=== PATIENT | female | born 1990 | race African-American/Black ===

== ENCOUNTER 2020-07-01 20:01 | Emergency (ER) | payer MEDICARE, MEDICAID ==
[2020-07-01 20:59] LABS: #Eosinphils 0.3 10x3/uL (0.0-0.5); #Monocytes 0.4 10x3/uL (0.0-1.1); #Neutrophils 2.7 10x3/uL (1.5-8.4); %Basophils 0.5 % (0.0-2.0); %Eosinophils 3.9 % (0.0-6.0); %Lymphocytes 46.7 % (18.0-47.0); %Monocytes 6.5 % (0.0-10.0); %Neutrophils 41.9 % (40.0-75.0); Hemoglobin 10.4 g/dL (12.0-15.5); Mean Corpuscular HGB CONC 30.9 g/dL (32.0-36.0); Mean Corpuscular Volume 71.2 fl (81.6-98.3); Mean Platelet Volume 9.6 fl (7.4-10.4); Platelet Count 312 10x3/uL (150-450); RBC Distribution Width 26.3 % (11.5-14.5); Red Blood Cell (RBC) Count 4.73 10x6/uL (3.90-5.03); White Blood Cell (WBC) Count 6.4 10x3/uL (3.5-10.5)
[2020-07-01 21:18] LABS: ALT (SGPT) 26 U/L (8-55); AST (SGOT) 22 U/L (5-34); Alkaline Phosphatase 78 U/L (40-110); Anion Gap 14 mmol/L (10-20); BUN (Urea Nitrogen) 9 mg/dL (7.0-18.7); Bilirubin, Total 2.2 mg/dL (0.2-1.2); Calc. Creatinine Clearance 0 mL/min (70-130); Calcium 9.4 mg/dL (7.8-10.44); Carbon Dioxide 20 mmol/L (22-29); Chloride 108 mmol/L (98-107); Globulin 3.7 g/dL (2.4-3.5); Glucose 97 mg/dL (70-105); Potassium 4.3 mmol/L (3.5-5.1); Protein, Total 8.7 g/dL (6.0-8.3); Sodium 138 mmol/L (136-145)
[2020-07-01] MEDS ORDERED: Morphine 4 MG/ML VIAL ONE ×2 (21:30→23:09)
[2020-07-01] MEDS ORDERED: diphenhydrAMINE 50 MG/ML VIAL ONE ×2 (21:30→23:09)
[2020-07-01 22:11] LABS: Band 1 % (5-11); Eosinophils 2 % (0-10); Lymphocytes 54 % (21-51); Metamyelocyte 1 % (0-0); Monocytes 6 % (0-10); Nucleated RBC 62 % (0)
[2020-07-01 22:13] LABS: Anisocytosis MARKED = >30 cells (100X) (0-5/hpf); Elliptocytes SLIGHT = 2-5 cells (100X) (0-1/hpf); Hypochromia MODERATE=16-30 cells (100X) (0-5/hpf); Microcytosis MODERATE=15-30 cells (100X) (0-5/hpf); Platelet Morphology Comment Appears Adequate; Poikilocytosis MARKED = >30 cells (100X) (0-5/hpf)
[2020-07-01 22:43] LABS: Pregnancy Test - Urine (BHCG) Negative (Negative); Pregu Control Background? CLEAR/WHITE (CLR/WHITE); Pregu Control Bar Appear? YES (CONTROL BAR)
[2020-07-02] MEDS ORDERED: Morphine 4 MG/ML VIAL ONE (00:06)
== END 2020-07-02 00:36 | disposition home or self-care (01) ==
LOC: CSHERS 20:01
DX: D57.00 Hb-SS disease with crisis, unspecified (principal); Z79.899 Other long term (current) drug therapy
CPT/HCPCS: 71045; 80053; 81025; 84484; 85025; 85046; 93005; 96374; 96375; 96376; J1200; J2270

== ENCOUNTER 2020-07-08 18:47 | Emergency (ER) | payer MEDICARE, MEDICAID ==
[2020-07-08] MEDS ORDERED: Morphine 4 MG/ML VIAL ONE (19:57)
[2020-07-08] MEDS ORDERED: diphenhydrAMINE 50 MG/ML VIAL ONE ×2 (19:58→21:17)
[2020-07-08 20:27] LABS: ALT (SGPT) 51 U/L (8-55); AST (SGOT) 34 U/L (5-34); Albumin 4.8 g/dL (3.5-5.0); Alkaline Phosphatase 83 U/L (40-110); Anion Gap 14 mmol/L (10-20); BUN (Urea Nitrogen) 10 mg/dL (7.0-18.7); Bilirubin, Total 2.4 mg/dL (0.2-1.2); CK (CPK) 60 U/L (29-168); Calc. Creatinine Clearance 0 mL/min (70-130); Calcium 9.3 mg/dL (7.8-10.44); Carbon Dioxide 21 mmol/L (22-29); Chloride 106 mmol/L (98-107); Globulin 3.5 g/dL (2.4-3.5); Glucose 89 mg/dL (70-105); Potassium 3.9 mmol/L (3.5-5.1); Protein, Total 8.3 g/dL (6.0-8.3); Sodium 137 mmol/L (136-145)
[2020-07-08 20:54] LABS: Hemoglobin 9.7 g/dL (12.0-15.5); Mean Corpuscular HGB CONC 31.6 g/dL (32.0-36.0); Mean Corpuscular Hemoglobin 22.2 pg (27.0-33.0); Mean Corpuscular Volume 70.3 fl (81.6-98.3); Mean Platelet Volume 9.3 fl (7.4-10.4); Platelet Count 439 10x3/uL (150-450); RBC Distribution Width 25.2 % (11.5-14.5); Red Blood Cell (RBC) Count 4.37 10x6/uL (3.90-5.03); White Blood Cell (WBC) Count 7.9 10x3/uL (3.5-10.5)
[2020-07-08 20:56] LABS: Band 4 % (5-11); Eosinophils 5 % (0-10); Lymphocytes 35 % (21-51); Monocytes 7 % (0-10); Neutrophil 46 % (42-75); Nucleated RBC 77 % (0); Reactive Lymphocytes 3 % (0-10)
[2020-07-08 20:57] LABS: Anisocytosis MODERATE=16-30 cells (100X) (0-5/hpf); Basophilic Stippling SLIGHT = 1-2 cells (100X) (None Seen); Macrocytosis SLIGHT = 6-15 cells (100X) (0-5/hpf); Microcytosis MODERATE=15-30 cells (100X) (0-5/hpf); Polychromasia MODERATE = 3-4 cells (100X) (0-2/hpf); Target Cells MODERATE= 6-15 cells (100X) (0-1/hpf)
[2020-07-08 20:58] LABS: Poikilocytosis SLIGHT = 6-15 cells (100X) (0-5/hpf); Sickle Cells SLIGHT = 1-5 cells (100X) (None Seen)
[2020-07-08 20:59] LABS: Spherocytes SLIGHT = 1-5 cells (100X) (None Seen)
[2020-07-08 21:01] LABS: Large Platelets SLIGHT; Platelet Morphology Comment Appears Increased
[2020-07-08 21:02] LABS: MDiff Complete? YES; Manual Diff?? YES
[2020-07-08] MEDS ORDERED: Morphine 2 MG/ML VIAL ONE (21:17)
[2020-07-09] MEDS ORDERED: Ibuprofen 200 MG TAB ONE (05:10)
[2020-07-09] MEDS ORDERED: Acetaminophen 500 MG TAB ONE (05:10)
== END 2020-07-08 22:25 | disposition home or self-care (01) ==
LOC: CSHERS 18:47
DX: D57.00 Hb-SS disease with crisis, unspecified (principal)
CPT/HCPCS: 71045; 80053; 82550; 84484; 85025; 85046; 93005; 96374; 96375; 96376; 99285; J2270; 36415; J1200

== ENCOUNTER 2020-07-17 13:11 | Emergency (ER) | payer MEDICARE, MEDICAID ==
[2020-07-17] MEDS ORDERED: Morphine 4 MG/ML VIAL ONE ×2 (15:29→17:29)
[2020-07-17] MEDS ORDERED: diphenhydrAMINE 50 MG/ML VIAL ONE ×3 (15:35→19:43)
[2020-07-17 15:44] LABS: Hemoglobin 8.9 g/dL (12.0-15.5); Mean Corpuscular HGB CONC 30.7 g/dL (32.0-36.0); Mean Corpuscular Hemoglobin 21.3 pg (27.0-33.0); Mean Corpuscular Volume 69.4 fl (81.6-98.3); Mean Platelet Volume 9.6 fl (7.4-10.4); Platelet Count 385 10x3/uL (150-450); RBC Distribution Width 25.1 % (11.5-14.5); Red Blood Cell (RBC) Count 4.18 10x6/uL (3.90-5.03); White Blood Cell (WBC) Count 8.2 10x3/uL (3.5-10.5)
[2020-07-17 15:55] LABS: BHCG - Serum Negative (NEGATIVE); Pregs Control Background? CLEAR/WHITE (CLR/WHITE); Pregs Control Bar Appear? YES (CONTROL BAR)
[2020-07-17 16:06] LABS: Bilirubin Neg (Negative); Blood, Urine Negative (Negative); Clarity Clear (Clear); Glucose, Urine (Dipstick) Normal (Negative); Ketone, Urine Negative (Negative); Leukocyte Negative (Negative); Nitrite Negative (Negative); Protein, Urine (Dipstick) Negative (Neg-Trace); Urobilinogen Normal mg/dL (Less than 2)
[2020-07-17 16:20] LABS: ALT (SGPT) 44 U/L (8-55); AST (SGOT) 35 U/L (5-34); Albumin 4.4 g/dL (3.5-5.0); Alkaline Phosphatase 85 U/L (40-110); Anion Gap 11 mmol/L (10-20); BUN (Urea Nitrogen) 10 mg/dL (7.0-18.7); Bilirubin, Total 1.9 mg/dL (0.2-1.2); Calc. Creatinine Clearance 0 mL/min (70-130); Calcium 9.3 mg/dL (7.8-10.44); Carbon Dioxide 25 mmol/L (22-29); Chloride 106 mmol/L (98-107); Globulin 3.5 g/dL (2.4-3.5); Glucose 86 mg/dL (70-105); Potassium 4.4 mmol/L (3.5-5.1); Protein, Total 7.9 g/dL (6.0-8.3); Sodium 138 mmol/L (136-145)
[2020-07-17] MEDS ORDERED: HYDROmorphone 0.5 MG/0.5 ML SYRINGE ONE (19:33)
[2020-07-17 19:34] LABS: Band 3 % (5-11); Eosinophils 3 % (0-10); Lymphocytes 33 % (21-51); MDiff Complete? YES; Monocytes 6 % (0-10); Neutrophil 55 % (42-75)
[2020-07-17 19:35] LABS: Nucleated RBC 53 % (0)
[2020-07-17 19:38] LABS: Anisocytosis MARKED = >30 cells (100X) (0-5/hpf); Poikilocytosis MODERATE=16-30 cells (100X) (0-5/hpf); Sickle Cells SLIGHT = 1-5 cells (100X) (None Seen); Target Cells SLIGHT = 2-5 cells (100X) (0-1/hpf)
[2020-07-17 19:39] LABS: Microcytosis MARKED = >30 cells (100X) (0-5/hpf); Platelet Morphology Comment Appears Adequate
== END 2020-07-17 20:29 | disposition home or self-care (01) ==
LOC: CSHERS 13:11
DX: D57.00 Hb-SS disease with crisis, unspecified (principal); Z79.01 Long term (current) use of anticoagulants
CPT/HCPCS: 80053; 81003; 84703; 85025; 85046; 93005; 96374; 96375; 96376; J1170; J1200; J2270

== ENCOUNTER 2020-07-20 01:28 | Emergency (ER) | payer MEDICARE, MEDICAID ==
[2020-07-20] MEDS ORDERED: diphenhydrAMINE 50 MG/ML VIAL ONE ×2 (02:31→04:57)
[2020-07-20] MEDS ORDERED: Morphine 4 MG/ML VIAL ONE (02:31)
[2020-07-20] MEDS ORDERED: Ketorolac Tromethamine 30 MG/ML VIAL ONE (02:32)
[2020-07-20 02:43] LABS: Hemoglobin 9.1 g/dL (12.0-15.5); Mean Corpuscular HGB CONC 31.4 g/dL (32.0-36.0); Mean Corpuscular Hemoglobin 21.4 pg (27.0-33.0); Mean Corpuscular Volume 68.2 fl (81.6-98.3); Mean Platelet Volume 8.8 fl (7.4-10.4); Platelet Count 350 10x3/uL (150-450); RBC Distribution Width 26.1 % (11.5-14.5); Red Blood Cell (RBC) Count 4.25 10x6/uL (3.90-5.03); White Blood Cell (WBC) Count 15.8 10x3/uL (3.5-10.5)
[2020-07-20 02:47] LABS: ALT (SGPT) 45 U/L (8-55); AST (SGOT) 32 U/L (5-34); Albumin 4.7 g/dL (3.5-5.0); Alkaline Phosphatase 84 U/L (40-110); Anion Gap 12 mmol/L (10-20); BUN (Urea Nitrogen) 6 mg/dL (7.0-18.7); Bilirubin, Total 2.3 mg/dL (0.2-1.2); Calc. Creatinine Clearance 0 mL/min (70-130); Calcium 9.3 mg/dL (7.8-10.44); Carbon Dioxide 22 mmol/L (22-29); Chloride 108 mmol/L (98-107); Globulin 3.5 g/dL (2.4-3.5); Glucose 102 mg/dL (70-105); Potassium 3.9 mmol/L (3.5-5.1); Protein, Total 8.2 g/dL (6.0-8.3); Sodium 138 mmol/L (136-145)
[2020-07-20] MEDS ORDERED: HYDROmorphone 0.5 MG/0.5 ML SYRINGE ONE ×2 (03:39→04:57)
[2020-07-20 03:50] LABS: Band 5 % (5-11); Lymphocytes 11 % (21-51); Monocytes 5 % (0-10); Neutrophil 79 % (42-75); Nucleated RBC 41 % (0)
[2020-07-20 03:52] LABS: Anisocytosis MODERATE=16-30 cells (100X) (0-5/hpf); Basophilic Stippling SLIGHT = 1-2 cells (100X) (None Seen); Microcytosis MODERATE=15-30 cells (100X) (0-5/hpf); Poikilocytosis SLIGHT = 6-15 cells (100X) (0-5/hpf); Polychromasia MODERATE = 3-4 cells (100X) (0-2/hpf); Sickle Cells SLIGHT = 1-5 cells (100X) (None Seen); Target Cells MODERATE= 6-15 cells (100X) (0-1/hpf)
[2020-07-20 03:53] LABS: Macrocytosis SLIGHT = 6-15 cells (100X) (0-5/hpf)
[2020-07-20 03:54] LABS: Tear Drops SLIGHT = 2-5 cells (100X) (0-1/hpf)
[2020-07-20 03:56] LABS: Howell Jolly Bodies MODERATE = 3-5 cells (100X) (None Seen)
[2020-07-20 03:59] LABS: Large Platelets SLIGHT; MDiff Complete? YES; Manual Diff?? YES; Platelet Morphology Comment Appears Adequate
== END 2020-07-20 05:19 | disposition home or self-care (01) ==
LOC: CSHERS 01:28
DX: D57.00 Hb-SS disease with crisis, unspecified (principal); M25.561 Pain in right knee; Z79.01 Long term (current) use of anticoagulants; Z79.899 Other long term (current) drug therapy
CPT/HCPCS: 80053; 85025; 85046; 93005; 96374; 96375; 96376; J1170; J1200; J1885; J2270

== ENCOUNTER 2020-07-24 16:49 | Emergency (ER) | payer MEDICARE, MEDICAID ==
[2020-07-24 17:52] LABS: Hemoglobin 9.5 g/dL (12.0-15.5); Mean Corpuscular HGB CONC 31.6 g/dL (32.0-36.0); Mean Corpuscular Hemoglobin 21.6 pg (27.0-33.0); Mean Corpuscular Volume 68.4 fl (81.6-98.3); Mean Platelet Volume 9.7 fl (7.4-10.4); Platelet Count 376 10x3/uL (150-450); RBC Distribution Width 25.1 % (11.5-14.5); White Blood Cell (WBC) Count 7.3 10x3/uL (3.5-10.5)
[2020-07-24 17:58] LABS: ALT (SGPT) 25 U/L (8-55); AST (SGOT) 21 U/L (5-34); Albumin 4.8 g/dL (3.5-5.0); Alkaline Phosphatase 83 U/L (40-110); Anion Gap 14 mmol/L (10-20); BUN (Urea Nitrogen) 6 mg/dL (7.0-18.7); Bilirubin, Total 2.6 mg/dL (0.2-1.2); Calc. Creatinine Clearance 0 mL/min (70-130); Calcium 9.5 mg/dL (7.8-10.44); Carbon Dioxide 21 mmol/L (22-29); Chloride 107 mmol/L (98-107); Globulin 3.6 g/dL (2.4-3.5); Glucose 87 mg/dL (70-105); Potassium 4.1 mmol/L (3.5-5.1); Protein, Total 8.4 g/dL (6.0-8.3); Sodium 138 mmol/L (136-145)
[2020-07-24 18:40] LABS: #Monocytes 0.5 10x3/uL (0.0-1.1); #Neutrophils 4.1 10x3/uL (1.5-8.4); %Basophils 0.3 % (0.0-2.0); %Eosinophils 5.6 % (0.0-6.0); %Lymphocytes 30.8 % (18.0-47.0); %Neutrophils 55.6 % (40.0-75.0)
[2020-07-24 18:44] LABS: #Eosinphils 0.4 10x3/uL (0.0-0.5)
[2020-07-24 18:46] LABS: Anisocytosis MODERATE=16-30 cells (100X) (0-5/hpf); Macrocytosis MODERATE=16-30 cells (100X) (0-5/hpf); Poikilocytosis SLIGHT = 6-15 cells (100X) (0-5/hpf); Polychromasia MODERATE = 3-4 cells (100X) (0-2/hpf)
[2020-07-24 18:47] LABS: Hypochromia MODERATE=16-30 cells (100X) (0-5/hpf); Stomatocytes MODERATE= 6-15 cells (100X) (0-1/hpf); Target Cells MODERATE= 6-15 cells (100X) (0-1/hpf)
[2020-07-24 18:48] LABS: Sickle Cells SLIGHT = 1-5 cells (100X) (None Seen)
[2020-07-24 18:49] LABS: Bite Cells SLIGHT = 2-5 cells (100X) (0-1/hpf)
[2020-07-24 18:50] LABS: Platelet Morphology Comment Appears Adequate; Reflex for Review?? YES
== END 2020-07-24 17:48 | disposition left against medical advice (07) ==
LOC: CSHERS 16:49
DX: Z53.21 Procedure and treatment not carried out due to patient leaving prior to being seen by health care provider (principal)
CPT/HCPCS: 71045; 80053; 84484; 85025; 85046; 85060; 93005

== ENCOUNTER 2020-08-06 18:27 | Emergency (ER) | payer MEDICARE, MEDICAID ==
[2020-08-06] MEDS ORDERED: Ketorolac Tromethamine 30 MG/ML VIAL ONE (19:35)
[2020-08-06] MEDS ORDERED: Metoclopramide HCl 10 MG/2 ML VIAL ONE (19:35)
[2020-08-06] MEDS ORDERED: diphenhydrAMINE 50 MG/ML VIAL ONE (19:35)
[2020-08-06 21:11] LABS: Hemoglobin 9.2 g/dL (12.0-15.5); Mean Corpuscular HGB CONC 31.3 g/dL (32.0-36.0); Mean Corpuscular Hemoglobin 21.2 pg (27.0-33.0); Mean Corpuscular Volume 67.9 fl (81.6-98.3); Mean Platelet Volume 9.5 fl (7.4-10.4); Platelet Count 353 10x3/uL (150-450); RBC Distribution Width 23.4 % (11.5-14.5); Red Blood Cell (RBC) Count 4.33 10x6/uL (3.90-5.03)
[2020-08-06 21:20] LABS: ALT (SGPT) 25 U/L (8-55); AST (SGOT) 29 U/L (5-34); Albumin 4.7 g/dL (3.5-5.0); Alkaline Phosphatase 76 U/L (40-110); Anion Gap 13 mmol/L (10-20); BUN (Urea Nitrogen) 7 mg/dL (7.0-18.7); Calc. Creatinine Clearance 0 mL/min (70-130); Calcium 9.4 mg/dL (7.8-10.44); Carbon Dioxide 22 mmol/L (22-29); Chloride 107 mmol/L (98-107); Globulin 3.7 g/dL (2.4-3.5); Glucose 111 mg/dL (70-105); Potassium 3.9 mmol/L (3.5-5.1); Protein, Total 8.4 g/dL (6.0-8.3); Sodium 138 mmol/L (136-145)
[2020-08-06 21:31] LABS: #Eosinphils 0.6 10x3/uL (0.0-0.5); #Monocytes 0.4 10x3/uL (0.0-1.1); #Neutrophils 3.9 10x3/uL (1.5-8.4); %Basophils 0.3 % (0.0-2.0); %Eosinophils 7.1 % (0.0-6.0); %Lymphocytes 41.9 % (18.0-47.0); %Neutrophils 45.4 % (40.0-75.0)
[2020-08-06 22:42] LABS: Eosinophils 6 % (0-10); Lymphocytes 35 % (21-51); Monocytes 3 % (0-10); Myelocyte 1 % (0-0); Neutrophil 45 % (42-75); Nucleated RBC 75 % (0); Reactive Lymphocytes 6 % (0-10)
[2020-08-06 22:43] LABS: Band 3 % (5-11)
[2020-08-06 22:45] LABS: Target Cells MODERATE= 6-15 cells (100X) (0-1/hpf)
[2020-08-06 22:46] LABS: Anisocytosis MODERATE=16-30 cells (100X) (0-5/hpf); Microcytosis MODERATE=15-30 cells (100X) (0-5/hpf); Poikilocytosis SLIGHT = 6-15 cells (100X) (0-5/hpf); Polychromasia SLIGHT = 2-3 cells (100X) (0-2/hpf); Sickle Cells MODERATE= 6-15 cells (100X) (None Seen)
[2020-08-06 22:47] LABS: Spherocytes SLIGHT = 1-5 cells (100X) (None Seen)
[2020-08-06 22:48] LABS: Basophilic Stippling SLIGHT = 1-2 cells (100X) (None Seen); Howell Jolly Bodies MODERATE = 3-5 cells (100X) (None Seen)
[2020-08-06 22:49] LABS: Large Platelets SLIGHT; Platelet Morphology Comment Appears Adequate
[2020-08-06 22:52] LABS: MDiff Complete? YES; Manual Diff?? YES; White Blood Cell (WBC) Count 6.6 10x3/uL (3.5-10.5)
== END 2020-08-06 21:41 | disposition left against medical advice (07) ==
LOC: CSHERS 18:27
DX: R51.9 Headache, unspecified (principal); D57.1 Sickle-cell disease without crisis
CPT/HCPCS: 80053; 85025; 85046; 96365; 96375; J1200; J1885; J2765

== ENCOUNTER 2020-08-15 15:26 | Emergency (ER) | payer MEDICARE, MEDICAID ==
[2020-08-15] MEDS ORDERED: Ketamine 50 MG/ML (10ML VIAL) ONE (18:27)
[2020-08-15] MEDS ORDERED: Ondansetron PF 4 MG/2 ML Vial ONE (18:28)
[2020-08-15 19:00] LABS: Hemoglobin 8.9 g/dL (12.0-15.5); Mean Corpuscular HGB CONC 31.2 g/dL (32.0-36.0); Mean Corpuscular Hemoglobin 21.3 pg (27.0-33.0); Mean Corpuscular Volume 68.3 fl (81.6-98.3); Mean Platelet Volume 9.4 fl (7.4-10.4); Platelet Count 335 10x3/uL (150-450); RBC Distribution Width 23.7 % (11.5-14.5); Red Blood Cell (RBC) Count 4.17 10x6/uL (3.90-5.03); White Blood Cell (WBC) Count 8.1 10x3/uL (3.5-10.5)
[2020-08-15 19:16] LABS: ALT (SGPT) 18 U/L (8-55); AST (SGOT) 20 U/L (5-34); Albumin 4.6 g/dL (3.5-5.0); Alkaline Phosphatase 73 U/L (40-110); Anion Gap 13 mmol/L (10-20); BUN (Urea Nitrogen) 7 mg/dL (7.0-18.7); Bilirubin, Total 2.7 mg/dL (0.2-1.2); Calc. Creatinine Clearance 0 mL/min (70-130); Calcium 9.3 mg/dL (7.8-10.44); Carbon Dioxide 23 mmol/L (22-29); Chloride 107 mmol/L (98-107); Globulin 3.5 g/dL (2.4-3.5); Glucose 84 mg/dL (70-105); Potassium 3.9 mmol/L (3.5-5.1); Protein, Total 8.1 g/dL (6.0-8.3); Sodium 139 mmol/L (136-145)
[2020-08-15 19:43] LABS: Eosinophils 4 % (0-10); Lymphocytes 34 % (21-51); Monocytes 3 % (0-10); Neutrophil 59 % (42-75); Nucleated RBC 59 % (0)
[2020-08-15 19:44] LABS: MDiff Complete? YES
[2020-08-15] MEDS ORDERED: Morphine 2 MG/ML VIAL ONE (19:44)
[2020-08-15] MEDS ORDERED: diphenhydrAMINE 50 MG/ML VIAL ONE (19:44)
[2020-08-15] MEDS ORDERED: Morphine 4 MG/ML VIAL ONE (19:44)
[2020-08-15 19:45] LABS: Anisocytosis MODERATE=16-30 cells (100X) (0-5/hpf); Basophilic Stippling SLIGHT = 1-2 cells (100X) (None Seen); Howell Jolly Bodies SLIGHT = 1-2 cells (100X) (None Seen); Hypochromia SLIGHT = 6-15 cells (100X) (0-5/hpf); Microcytosis MODERATE=15-30 cells (100X) (0-5/hpf); Pappenheimer Bodies MODERATE = 3-5 cells (100X) (None Seen); Poikilocytosis MODERATE=16-30 cells (100X) (0-5/hpf); Polychromasia SLIGHT = 2-3 cells (100X) (0-2/hpf); Target Cells MODERATE= 6-15 cells (100X) (0-1/hpf)
[2020-08-15 19:46] LABS: Sickle Cells SLIGHT = 1-5 cells (100X) (None Seen); Stomatocytes SLIGHT = 2-5 cells (100X) (0-1/hpf)
[2020-08-15 19:49] LABS: Schistocytes SLIGHT = 2-5 cells (100X) (0-1/hpf)
[2020-08-15 19:51] LABS: Large Platelets SLIGHT; Platelet Morphology Comment Appears Adequate
== END 2020-08-15 20:51 | disposition home or self-care (01) ==
LOC: CSHERS 15:26
DX: D57.00 Hb-SS disease with crisis, unspecified (principal)
CPT/HCPCS: 80053; 85025; 85046; 96374; 96375; 99284; J2270; J1200; J2405

== ENCOUNTER 2020-08-29 11:24 | Emergency (ER) | payer MEDICARE, MEDICAID ==
[2020-08-29 12:41] LABS: MDiff Complete? YES
[2020-08-29 12:44] LABS: ALT (SGPT) 21 U/L (8-55); AST (SGOT) 23 U/L (5-34); Albumin 4.3 g/dL (3.5-5.0); Alkaline Phosphatase 65 U/L (40-110); Anion Gap 13 mmol/L (10-20); BUN (Urea Nitrogen) 5 mg/dL (7.0-18.7); Bilirubin, Total 2.1 mg/dL (0.2-1.2); Calc. Creatinine Clearance 0 mL/min (70-130); Calcium 9.1 mg/dL (7.8-10.44); Carbon Dioxide 19 mmol/L (22-29); Chloride 109 mmol/L (98-107); Globulin 3.6 g/dL (2.4-3.5); Glucose 99 mg/dL (70-105); Potassium 4.1 mmol/L (3.5-5.1); Protein, Total 7.9 g/dL (6.0-8.3); Sodium 137 mmol/L (136-145)
[2020-08-29 12:47] LABS: Band 1 % (5-11); Eosinophils 2 % (0-10); Lymphocytes 30 % (21-51); Monocytes 5 % (0-10); Neutrophil 62 % (42-75); Nucleated RBC 55 % (0)
[2020-08-29 12:51] LABS: Hemoglobin 8.8 g/dL (12.0-15.5); Mean Corpuscular HGB CONC 31.3 g/dL (32.0-36.0); Mean Corpuscular Volume 66.9 fl (81.6-98.3); Mean Platelet Volume 9.6 fl (7.4-10.4); Platelet Count 437 10x3/uL (150-450); RBC Distribution Width 23.1 % (11.5-14.5); White Blood Cell (WBC) Count 8.2 10x3/uL (3.5-10.5)
[2020-08-29 12:53] LABS: Microcytosis MODERATE=15-30 cells (100X) (0-5/hpf); Schistocytes SLIGHT = 2-5 cells (100X) (0-1/hpf); Sickle Cells SLIGHT = 1-5 cells (100X) (None Seen); Target Cells MODERATE= 6-15 cells (100X) (0-1/hpf)
[2020-08-29 12:54] LABS: Stomatocytes SLIGHT = 2-5 cells (100X) (0-1/hpf)
[2020-08-29 12:55] LABS: Anisocytosis MODERATE=16-30 cells (100X) (0-5/hpf); Platelet Morphology Comment Appears Adequate
[2020-08-29] MEDS ORDERED: Morphine 4 MG/ML VIAL ONE (13:00)
[2020-08-29] MEDS ORDERED: Ketorolac Tromethamine 15 MG/ML VIAL ONE (13:01)
[2020-08-29] MEDS ORDERED: diphenhydrAMINE 50 MG/ML VIAL ONE (13:01)
== END 2020-08-29 16:38 | disposition home or self-care (01) ==
LOC: CSHERS 11:24
DX: D57.00 Hb-SS disease with crisis, unspecified (principal)
CPT/HCPCS: 36416; 71045; 80053; 84484; 85025; 85046; 93005; 96374; 96375; J1200; J1885; J2270

== ENCOUNTER 2020-11-23 20:18 | Emergency (ER) | payer MEDICARE, MEDICAID ==
[2020-11-23] MEDS ORDERED: Ondansetron ODT 4 MG TAB ONE (22:08)
[2020-11-23] MEDS ORDERED: Morphine 10 MG/ML VIAL ONE (22:34)
== END 2020-11-23 22:43 | disposition home or self-care (01) ==
LOC: CSHERS 20:18
DX: D57.00 Hb-SS disease with crisis, unspecified (principal); R11.0 Nausea
CPT/HCPCS: 96372; 99283; J2270; Q0162

== ENCOUNTER 2020-11-29 14:34 | Emergency (ER) | payer MEDICARE, MEDICAID ==
[2020-11-29 16:40] LABS: Mean Corpuscular HGB CONC 30.9 g/dL (32.0-36.0); Mean Corpuscular Volume 67.8 fl (81.6-98.3); Mean Platelet Volume 9.5 fl (7.4-10.4); Platelet Count 407 10x3/uL (150-450); RBC Distribution Width 23.8 % (11.5-14.5); Red Blood Cell (RBC) Count 4.29 10x6/uL (3.90-5.03); White Blood Cell (WBC) Count 9.9 10x3/uL (3.5-10.5)
[2020-11-29 16:56] LABS: ALT (SGPT) 16 U/L (8-55); AST (SGOT) 20 U/L (5-34); Albumin 4.5 g/dL (3.5-5.0); Alkaline Phosphatase 61 U/L (40-110); Anion Gap 12 mmol/L (10-20); BUN (Urea Nitrogen) 8 mg/dL (7.0-18.7); Bilirubin, Total 2.4 mg/dL (0.2-1.2); Calc. Creatinine Clearance 0 mL/min (70-130); Calcium 9.8 mg/dL (7.8-10.44); Carbon Dioxide 21 mmol/L (22-29); Chloride 110 mmol/L (98-107); Globulin 3.8 g/dL (2.4-3.5); Glucose 90 mg/dL (70-105); Potassium 4.3 mmol/L (3.5-5.1); Protein, Total 8.3 g/dL (6.0-8.3); Sodium 139 mmol/L (136-145)
[2020-11-29] MEDS ORDERED: diphenhydrAMINE 50 MG/ML VIAL ONE (17:12)
[2020-11-29] MEDS ORDERED: Morphine 10 MG/ML VIAL ONE (17:13)
[2020-11-29] MEDS ORDERED: Morphine 2 MG/ML VIAL ONE (18:25)
[2020-11-29 18:59] LABS: #Basophils 0.1 10x3/uL (0.0-0.2); #Eosinphils 0.5 10x3/uL (0.0-0.5); #Monocytes 0.8 10x3/uL (0.0-1.1); #Neutrophils 5.7 10x3/uL (1.5-8.4); %Basophils 0.8 % (0.0-2.0); %Eosinophils 5.1 % (0.0-6.0); %Lymphocytes 27.3 % (18.0-47.0); %Monocytes 8.2 % (0.0-10.0); %Neutrophils 57.1 % (40.0-75.0); Anisocytosis SLIGHT = 6-15 cells (100X) (0-5/hpf); Macrocytosis SLIGHT = 6-15 cells (100X) (0-5/hpf); Microcytosis SLIGHT = 6-15 cells (100X) (0-5/hpf)
[2020-11-29 19:00] LABS: Basophilic Stippling MODERATE = 3-5 cells (100X) (None Seen); Elliptocytes SLIGHT = 2-5 cells (100X) (0-1/hpf); Hypochromia SLIGHT = 6-15 cells (100X) (0-5/hpf); Platelet Morphology Comment Appears Adequate; Polychromasia SLIGHT = 2-3 cells (100X) (0-2/hpf); Sickle Cells SLIGHT = 1-5 cells (100X) (None Seen); Target Cells MODERATE= 6-15 cells (100X) (0-1/hpf)
== END 2020-11-29 18:28 | disposition home or self-care (01) ==
LOC: CSHERS 14:34
DX: D57.00 Hb-SS disease with crisis, unspecified (principal); Z79.01 Long term (current) use of anticoagulants; Z79.899 Other long term (current) drug therapy
CPT/HCPCS: 80053; 85025; 85046; 96372; 99284; J2270; J1200

== ENCOUNTER 2020-12-02 22:58 | Emergency (ER) | payer MEDICARE, MEDICAID ==
[2020-12-03] MEDS ORDERED: Morphine 4 MG/ML VIAL ONE (02:11)
[2020-12-03] MEDS ORDERED: diphenhydrAMINE 50 MG/ML VIAL ONE (02:12)
[2020-12-03 03:34] LABS: BHCG - Serum Negative (NEGATIVE); Pregs Control Background? CLEAR/WHITE (CLR/WHITE); Pregs Control Bar Appear? YES (CONTROL BAR)
[2020-12-03 03:38] LABS: ALT (SGPT) 16 U/L (8-55); AST (SGOT) 22 U/L (5-34); Albumin 4.3 g/dL (3.5-5.0); Alkaline Phosphatase 58 U/L (40-110); Anion Gap 15 mmol/L (10-20); BUN (Urea Nitrogen) 6 mg/dL (7.0-18.7); Bilirubin, Total 2.8 mg/dL (0.2-1.2); Calc. Creatinine Clearance 0 mL/min (70-130); Calcium 9.4 mg/dL (7.8-10.44); Carbon Dioxide 19 mmol/L (22-29); Chloride 109 mmol/L (98-107); Globulin 3.5 g/dL (2.4-3.5); Glucose 86 mg/dL (70-105); Lipase 30 U/L (8-78); Protein, Total 7.8 g/dL (6.0-8.3); Sodium 139 mmol/L (136-145)
[2020-12-03 04:01] LABS: Hemoglobin 8.2 g/dL (12.0-15.5); Mean Corpuscular HGB CONC 31.1 g/dL (32.0-36.0); Mean Corpuscular Hemoglobin 21.1 pg (27.0-33.0); Mean Platelet Volume 9.5 fl (7.4-10.4); RBC Distribution Width 23.2 % (11.5-14.5); Red Blood Cell (RBC) Count 3.88 10x6/uL (3.90-5.03)
[2020-12-03 04:02] LABS: MDiff Complete? YES; Platelet Count 309 10x3/uL (150-450)
[2020-12-03 04:06] LABS: Band 1 % (5-11); Eosinophils 7 % (0-10); Lymphocytes 41 % (21-51); Monocytes 8 % (0-10); Neutrophil 42 % (42-75); Nucleated RBC 87 % (0)
[2020-12-03 04:07] LABS: Anisocytosis MARKED = >30 cells (100X) (0-5/hpf); Microcytosis MODERATE=15-30 cells (100X) (0-5/hpf); Platelet Morphology Comment Appears Adequate; Polychromasia SLIGHT = 2-3 cells (100X) (0-2/hpf); Sickle Cells SLIGHT = 1-5 cells (100X) (None Seen); Target Cells SLIGHT = 2-5 cells (100X) (0-1/hpf)
== END 2020-12-03 04:41 | disposition home or self-care (01) ==
LOC: CSHERS 22:58
DX: D57.00 Hb-SS disease with crisis, unspecified (principal)
CPT/HCPCS: 36416; 80053; 83605; 83690; 84703; 85025; 85046; 96372; 99284; J1200; J2270

== ENCOUNTER 2021-02-05 16:45 | Emergency (ER) | payer MEDICARE, MEDICAID ==
[2021-02-05 18:13] LABS: ALT (SGPT) 27 U/L (8-55); AST (SGOT) 47 U/L (5-34); Albumin 4.4 g/dL (3.5-5.0); Alkaline Phosphatase 55 U/L (40-110); Anion Gap 17 mmol/L (10-20); BUN (Urea Nitrogen) 7 mg/dL (7.0-18.7); Bilirubin, Total 2.1 mg/dL (0.2-1.2); Calc. Creatinine Clearance 0 mL/min (70-130); Calcium 9.2 mg/dL (7.8-10.44); Carbon Dioxide 16 mmol/L (22-29); Chloride 112 mmol/L (98-107); Globulin 3.7 g/dL (2.4-3.5); Glucose 91 mg/dL (70-105); Potassium 4.9 mmol/L (3.5-5.1); Protein, Total 8.1 g/dL (6.0-8.3); Sodium 140 mmol/L (136-145)
[2021-02-05 18:37] LABS: Hemoglobin 8.4 g/dL (12.0-15.5); Mean Corpuscular HGB CONC 32.1 g/dL (32.0-36.0); Mean Corpuscular Hemoglobin 21.3 pg (27.0-33.0); Mean Corpuscular Volume 66.5 fl (81.6-98.3); Mean Platelet Volume 9.6 fl (7.4-10.4); RBC Distribution Width 21.7 % (11.5-14.5); Red Blood Cell (RBC) Count 3.94 10x6/uL (3.90-5.03)
[2021-02-05 18:38] LABS: Platelet Count 198 10x3/uL (150-450)
[2021-02-05 19:16] LABS: Band 2 % (5-11); Eosinophils 6 % (0-10); Lymphocytes 42 % (21-51); Monocytes 9 % (0-10); Nucleated RBC 45 % (0)
[2021-02-05 19:17] LABS: Neutrophil 40 % (42-75)
[2021-02-05 19:19] LABS: White Blood Cell (WBC) Count 8.4 10x3/uL (3.5-10.5)
[2021-02-05 19:22] LABS: Manual Diff?? YES
[2021-02-05 19:29] LABS: MDiff Complete? YES
[2021-02-05 19:31] LABS: Anisocytosis SLIGHT = 6-15 cells (100X) (0-5/hpf); Hypochromia SLIGHT = 6-15 cells (100X) (0-5/hpf); Microcytosis MODERATE=15-30 cells (100X) (0-5/hpf); Target Cells SLIGHT = 2-5 cells (100X) (0-1/hpf)
[2021-02-05 19:32] LABS: Large Platelets SLIGHT; Platelet Morphology Comment Appears Adequate
== END 2021-02-05 19:38 | disposition home or self-care (01) ==
LOC: CSHERS 16:45
DX: D57.00 Hb-SS disease with crisis, unspecified (principal)
CPT/HCPCS: 36416; 80053; 84484; 85025; 85046; 99283

== ENCOUNTER 2021-02-17 19:34 | Emergency (ER) | payer MEDICARE, MEDICAID ==
[2021-02-17] MEDS ORDERED: diphenhydrAMINE 25 MG CAP ONE (20:39)
[2021-02-17] MEDS ORDERED: HYDROmorphone 0.5 MG/0.5 ML SYRINGE ONE (20:40)
== END 2021-02-17 22:19 | disposition home or self-care (01) ==
LOC: CSHERS 19:34
DX: D57.00 Hb-SS disease with crisis, unspecified (principal); Z86.711 Personal history of pulmonary embolism; Z79.01 Long term (current) use of anticoagulants; Z79.899 Other long term (current) drug therapy
CPT/HCPCS: 71046; 80053; 85025; 85046; 96365; 96366; 96374; 96375; 96376; J1170; J1200; J2270

== ENCOUNTER 2021-03-03 20:24 | Emergency (ER) | payer MEDICARE, MEDICAID ==
[2021-03-03 22:09] LABS: Hemoglobin 9.6 g/dL (12.0-15.5); Mean Corpuscular HGB CONC 31.6 g/dL (32.0-36.0); Mean Corpuscular Hemoglobin 21.1 pg (27.0-33.0); Mean Corpuscular Volume 66.8 fl (81.6-98.3); Mean Platelet Volume 9.8 fl (7.4-10.4); Platelet Count 602 10x3/uL (150-450); RBC Distribution Width 26.1 % (11.5-14.5); Red Blood Cell (RBC) Count 4.55 10x6/uL (3.90-5.03); White Blood Cell (WBC) Count 8.6 10x3/uL (3.5-10.5)
[2021-03-03 22:10] LABS: MDiff Complete? YES
[2021-03-03 22:15] LABS: ALT (SGPT) 17 U/L (8-55); AST (SGOT) 21 U/L (5-34); Albumin 4.5 g/dL (3.5-5.0); Alkaline Phosphatase 61 U/L (40-110); Anion Gap 16 mmol/L (10-20); BUN (Urea Nitrogen) 8 mg/dL (7.0-18.7); Bilirubin, Total 2.3 mg/dL (0.2-1.2); Calc. Creatinine Clearance 0 mL/min (70-130); Calcium 9.6 mg/dL (7.8-10.44); Carbon Dioxide 19 mmol/L (22-29); Chloride 106 mmol/L (98-107); Glucose 87 mg/dL (70-105); Potassium 3.7 mmol/L (3.5-5.1); Protein, Total 8.5 g/dL (6.0-8.3); Sodium 137 mmol/L (136-145)
[2021-03-03 23:07] LABS: Lymphocytes 35 % (21-51); Monocytes 7 % (0-10); Neutrophil 53 % (42-75); Nucleated RBC 31 % (0); Reactive Lymphocytes 5 % (0-10)
[2021-03-03 23:09] LABS: Anisocytosis SLIGHT = 6-15 cells (100X) (0-5/hpf)
[2021-03-03 23:10] LABS: Hypochromia MODERATE=16-30 cells (100X) (0-5/hpf); Microcytosis MODERATE=15-30 cells (100X) (0-5/hpf); Poikilocytosis SLIGHT = 6-15 cells (100X) (0-5/hpf); Schistocytes SLIGHT = 2-5 cells (100X) (0-1/hpf); Sickle Cells MODERATE= 6-15 cells (100X) (None Seen); Spherocytes SLIGHT = 1-5 cells (100X) (None Seen); Target Cells MODERATE= 6-15 cells (100X) (0-1/hpf)
[2021-03-03 23:11] LABS: Stomatocytes SLIGHT = 2-5 cells (100X) (0-1/hpf); Tear Drops SLIGHT = 2-5 cells (100X) (0-1/hpf); Vacuoles SLIGHT
[2021-03-03 23:12] LABS: Platelet Morphology Comment Appears Increased
[2021-03-03] MEDS ORDERED: Morphine 4 MG/ML VIAL ONE (23:28)
== END 2021-03-03 23:45 | disposition home or self-care (01) ==
LOC: CSHERS 20:24
DX: R07.89 Other chest pain (principal); D57.40 Sickle-cell thalassemia without crisis; Z79.01 Long term (current) use of anticoagulants; Z79.899 Other long term (current) drug therapy
CPT/HCPCS: 71045; 80053; 84484; 85025; 85046; 93005; 96372; J2270

== ENCOUNTER 2021-03-24 18:28 | Emergency (ER) | payer MEDICARE, MEDICAID ==
[2021-03-24 20:33] LABS: ALT (SGPT) 17 U/L (8-55); AST (SGOT) 20 U/L (5-34); Albumin 4.2 g/dL (3.5-5.0); Alkaline Phosphatase 68 U/L (40-110); Anion Gap 14 mmol/L (10-20); BUN (Urea Nitrogen) 4 mg/dL (7.0-18.7); Bilirubin, Total 2.1 mg/dL (0.2-1.2); Calc. Creatinine Clearance 0 mL/min (70-130); Calcium 9.1 mg/dL (7.8-10.44); Carbon Dioxide 20 mmol/L (22-29); Chloride 109 mmol/L (98-107); Globulin 3.3 g/dL (2.4-3.5); Glucose 95 mg/dL (70-105); Potassium 3.9 mmol/L (3.5-5.1); Protein, Total 7.5 g/dL (6.0-8.3); Sodium 139 mmol/L (136-145)
[2021-03-24] MEDS ORDERED: Morphine 4 MG/ML VIAL ONE (20:40)
[2021-03-24 20:44] LABS: Hemoglobin 8.9 g/dL (12.0-15.5); Mean Corpuscular HGB CONC 31.4 g/dL (32.0-36.0); Mean Corpuscular Hemoglobin 20.7 pg (27.0-33.0); RBC Distribution Width 24.8 % (11.5-14.5); Red Blood Cell (RBC) Count 4.29 10x6/uL (3.90-5.03)
[2021-03-24 20:45] LABS: Platelet Count 244 10x3/uL (150-450)
[2021-03-24 20:46] LABS: MDiff Complete? YES
[2021-03-24 20:48] LABS: Band 1 % (5-11); Monocytes 6 % (0-10); Neutrophil 59 % (42-75); Nucleated RBC 105 % (0)
[2021-03-24 20:49] LABS: Eosinophils 1 % (0-10); Metamyelocyte 1 % (0-0)
[2021-03-24 20:50] LABS: Anisocytosis SLIGHT = 6-15 cells (100X) (0-5/hpf); Lymphocytes 33 % (21-51)
[2021-03-24 20:51] LABS: Polychromasia SLIGHT = 2-3 cells (100X) (0-2/hpf); Sickle Cells SLIGHT = 1-5 cells (100X) (None Seen); Target Cells MODERATE= 6-15 cells (100X) (0-1/hpf)
[2021-03-24 20:52] LABS: Large Platelets SLIGHT; Microcytosis MODERATE=15-30 cells (100X) (0-5/hpf); Platelet Morphology Comment Appears Adequate; Vacuoles MODERATE
== END 2021-03-24 21:13 | disposition home or self-care (01) ==
LOC: CSHERS 18:28
DX: D57.00 Hb-SS disease with crisis, unspecified (principal)
CPT/HCPCS: 36416; 71045; 80053; 85025; 85046; 93005; 96372; J2270